=== PATIENT | female | born 1980 | race Caucasian/White ===

== ENCOUNTER 2018-10-11 17:18 | Emergency (ER) | payer OTHER ==
[~2018-10-11] VITALS: Ht 170.2 cm; Wt 73.5 kg
== END 2018-10-11 20:37 | disposition home or self-care (01) ==
LOC: ER 17:18
DX: R07.89 Other chest pain (principal); M62.830 Muscle spasm of back; M94.0 Chondrocostal junction syndrome [Tietze]; F06.4 Anxiety disorder due to known physiological condition